=== PATIENT | male | born 1965 | race African-American/Black ===

== ENCOUNTER 2017-02-14 10:30 | Inpatient (IN) | payer OTHER ==
[2017-02-14 12:27] VITALS: BMI 25.4
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
[2017-02-14] MEDS ORDERED: P-EPHED 60MG/TRIPROLIDI 2.5MG TABLET PO PRN (13:50)
[2017-02-14] MEDS ORDERED: ACETAMINOPHEN 325 MG TABLET (FP) PO PRN (13:50)
[2017-02-14] MEDS ORDERED: MAGNESIUM HYDROX 2400MG/30ML ORAL SUSPENSION 30 ML CUP PO PRN (13:50)
[2017-02-14] MEDS ORDERED: MAG HYDROX/AL HYDROX/SIMETH 30 ML UNIT-DOSE CUP PO PRN (13:50)
[2017-02-14] MEDS ORDERED: LOPERAMIDE HCL 2 MG CAPSULE PO PRN (13:50)
[2017-02-14] MEDS ORDERED: IBUPROFEN 400 MG TABLET (FP) PO PRN (13:50)
[2017-02-14] MEDS ORDERED: MAGNESIUM CITRATE 300 ML BOTTLE PO PRN (13:50)
[2017-02-14] MEDS ORDERED: MENTHOL/PHENOL 1 EACH UD MM PRN (13:50)
[2017-02-14] MEDS ORDERED: guaiFENesin/D-METHORPHAN HB 10 ML UNIT-DOSE CUPS PO PRN (13:50)
[2017-02-14] MEDS: THIAMINE HCL 100 MG TABLET (FP) PO SCH (21:49)
[2017-02-14 23:17] LABS: URINE APPEARANCE CLEAR; URINE BILIRUBIN NEGATIVE (NEGATIVE); URINE BLOOD NEGATIVE (NEGATIVE); URINE COLOR YELLOW; URINE GLUCOSE (UA) NEGATIVE (NEGATIVE); URINE KETONE TRACE (NEGATIVE); URINE LEUK ESTERASE NEGATIVE (NEGATIVE); URINE NITRITE NEGATIVE (NEGATIVE); URINE PROTEIN NEGATIVE (NEGATIVE)
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
[2017-02-15] MEDS: hydrOXYzine PAMOATE 50 MG CAPSULE (FP) PO PRN (08:57)
[2017-02-15] MEDS: PRENATAL VITAMINS W/ FOLIC ACID TABLET (FP) PO SCH (09:02)
[2017-02-15 10:25] LABS: MCH 31.7 pg (25.7-33.7); MCHC 32.6 g/dl (32.0-35.9); MEAN CELL VOLUME 97.3 fl (80-96); MEAN PLT VOLUME 8.4 fl (7.5-11.1); PLATELET COUNT 187 K/MM3 (134-434); RDW 13.9 % (11.9-15.9); WHITE BLOOD COUNT 4.6 K/mm3 (4.0-10.0)
[2017-02-15 10:53] LABS: ALBUMIN 3.5 g/dl (3.4-5.0); ALK PHOS 61 U/L (45-117); ANION GAP 7 (8-16); BILIRUBIN,TOTAL 0.7 mg/dL (0.2-1.0); CALCIUM 9.5 mg/dL (8.5-10.1); CO2 29 mmol/L (21-32); CREATININE 1.2 mg/dL (0.7-1.3); GLUCOSE,RANDOM 87 mg/dL (74-106); SGOT/AST 19 U/L (15-37); SGPT/ALT 22 U/L (12-78); TOT PROT 7.3 g/dl (6.4-8.2)
[2017-02-15] MEDS: THIAMINE HCL 100 MG TABLET (FP) PO SCH (21:25)
[2017-02-16] MEDS: IBUPROFEN 600 MG TABLET (FP) PO PRN (09:50)
[2017-02-16] MEDS: hydrOXYzine PAMOATE 50 MG CAPSULE (FP) PO PRN (09:51)
[2017-02-16] MEDS: PRENATAL VITAMINS W/ FOLIC ACID TABLET (FP) PO SCH (09:51)
--- NOTE | 2017-02-16 12:23 | EKG ---
Test Reason : Blood Pressure : / mmHG Vent. Rate : 061 BPM Atrial Rate : 061 BPM P-R Int : 150 ms QRS Dur : 102 ms QT Int : 408 ms P-R-T Axes : 069 -30 046 degrees QTc Int : 410 ms NORMAL SINUS RHYTHM LEFT AXIS DEVIATION PULMONARY DISEASE PATTERN INCOMPLETE RIGHT BUNDLE BRANCH BLOCK ABNORMAL ECG NO PREVIOUS ECGS AVAILABLE Confirmed by COLE CARO MD ([id number]) on 02/16/2017 12:23:47 PM Referred By: Confirmed By:COLE CARO MD
[2017-02-16] MEDS: THIAMINE HCL 100 MG TABLET (FP) PO SCH (21:45)
[2017-02-17] MEDS: IBUPROFEN 600 MG TABLET (FP) PO PRN (10:00)
[2017-02-17] MEDS: hydrOXYzine PAMOATE 50 MG CAPSULE (FP) PO PRN (10:00)
[2017-02-17] MEDS: PRENATAL VITAMINS W/ FOLIC ACID TABLET (FP) PO SCH (10:00)
[2017-02-17] MEDS: THIAMINE HCL 100 MG TABLET (FP) PO SCH (22:05)
[2017-02-18] MEDS: PRENATAL VITAMINS W/ FOLIC ACID TABLET (FP) PO SCH (10:07)
[2017-02-18] MEDS: THIAMINE HCL 100 MG TABLET (FP) PO SCH (21:24)
[2017-02-19] MEDS: PRENATAL VITAMINS W/ FOLIC ACID TABLET (FP) PO SCH (09:58)
[2017-02-19] MEDS: THIAMINE HCL 100 MG TABLET (FP) PO SCH (21:35)
[2017-02-20] MEDS: PRENATAL VITAMINS W/ FOLIC ACID TABLET (FP) PO SCH (10:04)
[2017-02-20] MEDS: IBUPROFEN 600 MG TABLET (FP) PO PRN (10:05)
[2017-02-20] MEDS: THIAMINE HCL 100 MG TABLET (FP) PO SCH (21:35)
[2017-02-20] MEDS: diphenhydrAMINE HCL 50 MG CAPSULE PO PRN (21:35)
[2017-02-21] MEDS: PRENATAL VITAMINS W/ FOLIC ACID TABLET (FP) PO SCH (10:04)
[2017-02-21] MEDS: THIAMINE HCL 100 MG TABLET (FP) PO SCH (21:31)
[2017-02-22] MEDS: PRENATAL VITAMINS W/ FOLIC ACID TABLET (FP) PO SCH (10:46)
[2017-02-22] MEDS: THIAMINE HCL 100 MG TABLET (FP) PO SCH (21:42)
[2017-02-23] MEDS: PRENATAL VITAMINS W/ FOLIC ACID TABLET (FP) PO SCH (10:03)
[2017-02-23] MEDS: THIAMINE HCL 100 MG TABLET (FP) PO SCH (21:36)
[2017-02-24] MEDS: PRENATAL VITAMINS W/ FOLIC ACID TABLET (FP) PO SCH (10:13)
[2017-02-24] MEDS: THIAMINE HCL 100 MG TABLET (FP) PO SCH (21:34)
[2017-02-25] MEDS: PRENATAL VITAMINS W/ FOLIC ACID TABLET (FP) PO SCH (09:52)
[2017-02-25] MEDS: THIAMINE HCL 100 MG TABLET (FP) PO SCH (21:37)
[2017-02-26] MEDS: PRENATAL VITAMINS W/ FOLIC ACID TABLET (FP) PO SCH (10:11)
[2017-02-26] MEDS: diphenhydrAMINE HCL 50 MG CAPSULE PO PRN (22:05)
[2017-02-26] MEDS: THIAMINE HCL 100 MG TABLET (FP) PO SCH (22:06)
[2017-02-27] MEDS: PRENATAL VITAMINS W/ FOLIC ACID TABLET (FP) PO SCH (10:29)
[2017-02-27] MEDS: diphenhydrAMINE HCL 50 MG CAPSULE PO PRN (21:26)
[2017-02-27] MEDS: THIAMINE HCL 100 MG TABLET (FP) PO SCH (21:27)
[2017-02-28] MEDS: PRENATAL VITAMINS W/ FOLIC ACID TABLET (FP) PO SCH (10:22)
[2017-02-28] MEDS: THIAMINE HCL 100 MG TABLET (FP) PO SCH (21:27)
[2017-02-28] MEDS: diphenhydrAMINE HCL 50 MG CAPSULE PO PRN (21:27)
[2017-03-01] MEDS: PRENATAL VITAMINS W/ FOLIC ACID TABLET (FP) PO SCH (10:20)
[2017-03-01] MEDS: THIAMINE HCL 100 MG TABLET (FP) PO SCH (21:29)
[2017-03-01] MEDS: diphenhydrAMINE HCL 50 MG CAPSULE PO PRN (21:29)
[2017-03-01] MEDS: IBUPROFEN 600 MG TABLET (FP) PO PRN (21:30)
[2017-03-02] MEDS: PRENATAL VITAMINS W/ FOLIC ACID TABLET (FP) PO SCH (10:27)
[2017-03-02] MEDS: IBUPROFEN 600 MG TABLET (FP) PO PRN (21:34)
[2017-03-02] MEDS: diphenhydrAMINE HCL 50 MG CAPSULE PO PRN (21:34)
[2017-03-02] MEDS: THIAMINE HCL 100 MG TABLET (FP) PO SCH (21:35)
[2017-03-03] MEDS: PRENATAL VITAMINS W/ FOLIC ACID TABLET (FP) PO SCH (10:09)
[2017-03-03] MEDS: diphenhydrAMINE HCL 50 MG CAPSULE PO PRN (21:31)
[2017-03-03] MEDS: THIAMINE HCL 100 MG TABLET (FP) PO SCH (21:32)
[2017-03-04] MEDS: PRENATAL VITAMINS W/ FOLIC ACID TABLET (FP) PO SCH (09:57)
[2017-03-04] MEDS: diphenhydrAMINE HCL 50 MG CAPSULE PO PRN (21:29)
[2017-03-04] MEDS: THIAMINE HCL 100 MG TABLET (FP) PO SCH (21:29)
[2017-03-05] MEDS: PRENATAL VITAMINS W/ FOLIC ACID TABLET (FP) PO SCH (10:01)
[2017-03-05] MEDS: diphenhydrAMINE HCL 50 MG CAPSULE PO PRN (21:31)
[2017-03-05] MEDS: THIAMINE HCL 100 MG TABLET (FP) PO SCH (21:31)
[2017-03-06 06:53] VITALS: TEMP 98.2
[2017-03-06] MEDS: PRENATAL VITAMINS W/ FOLIC ACID TABLET (FP) PO SCH (10:10)
[2017-03-06] MEDS: THIAMINE HCL 100 MG TABLET (FP) PO SCH (21:29)
[2017-03-06] MEDS: diphenhydrAMINE HCL 50 MG CAPSULE PO PRN (21:29)
[2017-03-07 07:08] VITALS: BP 132/91; PULSE 90
--- NOTE | 2017-03-07 09:04 | PN ---
Psychiatric Progress Note Vital Signs: Vital Signs Period Temp Pulse Resp BP Sys/Stern Pulse Ox Last 24 Hr 98.2 F 90 18-18 132/91 Date of Session: 03/07/17 Chief Complaint:: Discharge visit HPI: Patient addressed alcohol and pcp dependence comorbid with substance induced mood disorder. ROS: unremarkable Current Medications: Active Medications Generic Name Dose Route Start Last Admin Trade Name Freq PRN Reason Stop Dose Admin Acetaminophen 650 mg 02/14/17 13:50 Tylenol - PO Q4H PRN FEVER OR PAIN Al Hydroxide/Mg Hydroxide 30 ml 02/14/17 13:50 03/05/17 23:11 Mylanta Oral Suspension - PO 30 ml Q6H PRN Administration DYSPEPSIA Diphenhydramine HCl 50 mg 02/14/17 13:50 03/06/17 21:29 Benadryl - PO 50 mg HSMR1 PRN Administration FOR ITCHING Eucalyptus/Menthol/Phenol/Sorbitol 1 each 02/14/17 13:50 Cepastat Lozenge - MM Q4H PRN SORE THROAT Guaifenesin 10 ml 02/14/17 13:50 Robitussin Dm - PO Q6H PRN COUGH Hydroxyzine Pamoate 50 mg 02/14/17 13:50 02/17/17 10:00 Vistaril - PO 50 mg Q4H PRN Administration AGITATION Ibuprofen 600 mg 02/15/17 11:11 03/02/17 21:34 Motrin - PO 600 mg Q6H PRN Administration PAIN Loperamide HCl 4 mg 02/14/17 13:50 Imodium - PO Q6H PRN DIARRHEA Magnesium Hydroxide 30 ml 02/14/17 13:50 Milk Of Magnesia - PO DAILY PRN CONSTIPATION Multivit/Folic Acid/Iron 1 tab 02/15/17 10:00 03/06/17 10:10 Vitamins (Sjr) - PO 1 tab DAILY MARTHA Administration Pseudoephedrine/Triprolidine 1 combo 02/14/17 13:50 Actifed - PO TID PRN NASAL CONGESTION Thiamine HCl 100 mg 02/14/17 22:00 03/06/17 21:29 Vitamin B1 - PO Not Given HS MARTHA Current Side Effect: No Lab tests ordered: No Lab tests reviewed: Yes Provider note:: Patient completed this program today.he has met his treatment goals and will continue to address his issues on outpatient basis at [facility] rehabilitation program.Patient continues to find that Vistaril as needed will help him to cope with anxiety,some irritability and episodes of mood instability.No need to start antidepressants at this time. Suportive therapy priovided focusing on relapse prevention,coping skills,support system utilization to maintain recovery. Patient is stable for discharge today. Total face to face time:: 30 Mental Status Exam - Mental Status Exam Alert and Oriented to: Time, Place, Person Cognitive Function: Grossly Intact Patient Appearance: Well Groomed Mood: Euthymic Affect: Appropriate Patient Behavior: Appropriate, Cooperative Speech Pattern: Clear Voice Loudness: Normal Thought Process: Goal Oriented Thought Disorder: Not Present Hallucinations: Denies Suicidal Ideation: Denies Homicidal Ideation: Denies Insight/Judgement: Fair Sleep: Fair Appetite: Good Muscle strength/Tone: Normal Gait/Station: Normal
[2017-03-07] MEDS: PRENATAL VITAMINS W/ FOLIC ACID TABLET (FP) PO SCH (10:02)
== END 2017-03-07 10:30 | disposition home or self-care (01) | DRG 772 ==
LOC: YASAS 10:30 → Y5N 13:41
PROVIDERS: ADMIT Psychiatry & Neurology Psychiatry; ATTEND Psychiatry & Neurology Psychiatry
PROC: HZ42ZZZ Group Counseling for Substance Abuse Treatment, Cognitive-Behavioral (ICD-10-PCS; principal; 2017-02-14)
DX: F10.20 Alcohol dependence, uncomplicated (principal); F16.20 Hallucinogen dependence, uncomplicated; F19.24 Other psychoactive substance dependence with psychoactive substance-induced mood disorder; R76.11 Nonspecific reaction to tuberculin skin test without active tuberculosis; R26.2 Difficulty in walking, not elsewhere classified; Z99.89 Dependence on other enabling machines and devices; Z87.828 Personal history of other (healed) physical injury and trauma; S93.402D Sprain of unspecified ligament of left ankle, subsequent encounter; X58.XXXD Exposure to other specified factors, subsequent encounter
CPT/HCPCS: 36415; 71010-TC; 80053; 81003; 85027; 86593; 93005; 93010

== ENCOUNTER 2017-11-28 18:06 | Inpatient (IN) | payer OTHER ==
[2017-11-28 19:56] VITALS: BMI 22.0
[2017-11-28] MEDS ORDERED: MELATONIN 5 MG TABLETS PO PRN (22:00)
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
[2017-11-28] MEDS ORDERED: MAGNESIUM HYDROX 2400MG/30ML ORAL SUSPENSION 30 ML CUP PO PRN (22:19)
[2017-11-28] MEDS ORDERED: IBUPROFEN 400 MG TABLET (FP) PO PRN (22:19)
[2017-11-28] MEDS ORDERED: P-EPHED 60MG/TRIPROLIDI 2.5MG TABLET PO PRN (22:19)
[2017-11-28] MEDS ORDERED: ACETAMINOPHEN 325 MG TABLET (FP) PO PRN (22:19)
[2017-11-28] MEDS ORDERED: LOPERAMIDE HCL 2 MG CAPSULE PO PRN (22:19)
[2017-11-28] MEDS ORDERED: MENTHOL/PHENOL 1 EACH UD MM PRN (22:19)
[2017-11-28] MEDS ORDERED: chlordiazePOXIDE HCL 25 MG CAPSULE PO PRN (22:19)
[2017-11-28] MEDS ORDERED: MAG HYDROX/AL HYDROX/SIMETH 30 ML UNIT-DOSE CUP PO PRN (22:19)
[2017-11-28] MEDS ORDERED: guaiFENesin/D-METHORPHAN HB 10 ML UNIT-DOSE CUPS PO PRN (22:19)
[2017-11-28] MEDS ORDERED: MAGNESIUM CITRATE 300 ML BOTTLE PO PRN (22:19)
[2017-11-28] MEDS: chlordiazePOXIDE HCL 25 MG CAPSULE PO SCH (23:36)
[2017-11-29] MEDS: chlordiazePOXIDE HCL 25 MG CAPSULE PO SCH ×4 (05:43→22:18)
[2017-11-29 09:47] LABS: HEMATOCRIT 42.3 % (35.4-49); MCH 31.9 pg (25.7-33.7); MCHC 33.2 g/dl (32.0-35.9); MEAN PLT VOLUME 8.2 fl (7.5-11.1); PLATELET COUNT 166 K/MM3 (134-434); RDW 13.8 % (11.9-15.9); WHITE BLOOD COUNT 3.9 K/mm3 (4.0-10.0)
--- NOTE | 2017-11-29 09:50 | EKG ---
Test Reason : Blood Pressure : / mmHG Vent. Rate : 064 BPM Atrial Rate : 064 BPM P-R Int : 152 ms QRS Dur : 092 ms QT Int : 412 ms P-R-T Axes : 065 001 049 degrees QTc Int : 425 ms NORMAL SINUS RHYTHM NORMAL ECG WHEN COMPARED WITH ECG OF 14-FEB-2017 15:34, NON-SPECIFIC CHANGE IN ST SEGMENT IN ANTERIOR LEADS Confirmed by MD Chelsea, Leon ([id number]) on 11/29/2017 9:50:07 AM Referred By: Otf Fontaine Confirmed By:Leon Tran MD
[2017-11-29 10:07] LABS: CHLORIDE 109 mmol/L (98-107); POTASSIUM 3.7 mmol/L (3.5-5.1); SODIUM 144 mmol/L (136-145)
--- NOTE | 2017-11-29 10:16 | PN ---
S CIWA - CIWA Score Nausea/Vomitin Muscle Tremors: 3 Anxiety: 3 Agitation: 2 Paroxysmal Sweats: No Perspiration Orientation: 0-Oriented Tacttile Disturbances: 1-Very Mild Itch/Numbness Auditory Disturbances: 1-Very Mild Visual Disturbances: 0-None Headache: 2-Mild CIWA-Ar Total Score: 15 S Progress Note (SOAP) Subjective: ALERT,IRRITABLE,ANXIOUS,INTERRUPTED SLEEP,TREMOR Objective: 11/29/17 10:14 Vital Signs Temperature 97.3 F L 11/29/17 08:54 Pulse Rate 74 11/29/17 08:54 Respiratory Rate 18 11/29/17 08:54 Blood Pressure 112/79 11/29/17 08:54 O2 Sat by Pulse Oximetry (%) EKG NSR,NORMAL ECG PROLONG QT 412/425 NO CHEST PAIN,NO SOB,NO DIZZINESS Laboratory Last Values WBC 3.9 K/mm3 (4.0-10.0) L 11/29/17 07:30 RBC 4.40 M/mm3 (4.00-5.60) 11/29/17 07:30 Hgb 14.0 GM/dL (11.7-16.9) D 11/29/17 07:30 Hct 42.3 % (35.4-49) 11/29/17 07:30 MCV 96.0 fl (80-96) 11/29/17 07:30 MCH 31.9 pg (25.7-33.7) 11/29/17 07:30 MCHC 33.2 g/dl (32.0-35.9) 11/29/17 07:30 RDW 13.8 % (11.9-15.9) 11/29/17 07:30 Plt Count 166 K/MM3 (134-434) 11/29/17 07:30 MPV 8.2 fl (7.5-11.1) 11/29/17 07:30 Sodium 144 mmol/L (136-145) 11/29/17 07:30 Potassium 3.7 mmol/L (3.5-5.1) 11/29/17 07:30 Chloride 109 mmol/L (98-107) H 11/29/17 07:30 LABS PENDING Assessment: 11/29/17 10:15 WITHDRAWAL SYMPTOM Plan: CONTINUE DETOX
[2017-11-29] MEDS: PRENATAL VITAMINS W/ FOLIC ACID TABLET (FP) PO SCH (10:36)
[2017-11-29] MEDS: TOLNAFTATE 1% CREAM 15 GM TUBE TP SCH ×2 (11:00→22:19)
[2017-11-29] MEDS: AMMONIUM LACTATE 12% LOTION 225 GM BOTTLE TP SCH ×2 (11:00→22:19)
[2017-11-29 11:10] LABS: ALK PHOS 47 U/L (45-117); ANION GAP 4 (8-16); BILIRUBIN,TOTAL 0.7 mg/dL (0.2-1.0); BLOOD UREA NITROGEN 15 mg/dL (7-18); CALCIUM 8.2 mg/dL (8.5-10.1); CO2 31 mmol/L (21-32); GLUCOSE,RANDOM 77 mg/dL (74-106); SGOT/AST 15 U/L (15-37); SGPT/ALT 14 U/L (12-78); TOT PROT 5.9 g/dl (6.4-8.2)
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
[2017-11-29] MEDS: THIAMINE HCL 100 MG TABLET (FP) PO SCH (22:18)
[2017-11-30] MEDS: chlordiazePOXIDE HCL 25 MG CAPSULE PO SCH ×3 (05:16→17:55)
--- NOTE | 2017-11-30 09:07 | PN ---
S CIWA - CIWA Score Nausea/Vomitin Muscle Tremors: 3 Anxiety: 2 Agitation: 2 Paroxysmal Sweats: 1-Minimal Palms Moist Orientation: 0-Oriented Tacttile Disturbances: 1-Very Mild Itch/Numbness Auditory Disturbances: 1-Very Mild Visual Disturbances: 0-None Headache: 2-Mild CIWA-Ar Total Score: 15 [facility] Progress Note (SOAP) Subjective: ALERT,IRRITABLE,ANXIOUS,INTERRUPTED SLEEP,PAIN IN THE BODY Objective: 11/30/17 09:05 Vital Signs Temperature 97 F L 11/30/17 07:17 Pulse Rate 65 11/30/17 07:17 Respiratory Rate 18 11/30/17 07:17 Blood Pressure 128/78 11/30/17 07:17 O2 Sat by Pulse Oximetry (%) Laboratory Last Values WBC 3.9 K/mm3 (4.0-10.0) L 11/29/17 07:30 RBC 4.40 M/mm3 (4.00-5.60) 11/29/17 07:30 Hgb 14.0 GM/dL (11.7-16.9) D 11/29/17 07:30 Hct 42.3 % (35.4-49) 11/29/17 07:30 MCV 96.0 fl (80-96) 11/29/17 07:30 MCH 31.9 pg (25.7-33.7) 11/29/17 07:30 MCHC 33.2 g/dl (32.0-35.9) 11/29/17 07:30 RDW 13.8 % (11.9-15.9) 11/29/17 07:30 Plt Count 166 K/MM3 (134-434) 11/29/17 07:30 MPV 8.2 fl (7.5-11.1) 11/29/17 07:30 Sodium 144 mmol/L (136-145) 11/29/17 07:30 Potassium 3.7 mmol/L (3.5-5.1) 11/29/17 07:30 Chloride 109 mmol/L (98-107) H 11/29/17 07:30 Carbon Dioxide 31 mmol/L (21-32) 11/29/17 07:30 Anion Gap 4 (8-16) L 11/29/17 07:30 BUN 15 mg/dL (7-18) D 11/29/17 07:30 Creatinine 1.0 mg/dL (0.7-1.3) 11/29/17 07:30 Creat Clearance w eGFR > 60 (>60) 11/29/17 07:30 Random Glucose 77 mg/dL (74-106) 11/29/17 07:30 Calcium 8.2 mg/dL (8.5-10.1) L 11/29/17 07:30 Total Bilirubin 0.7 mg/dL (0.2-1.0) 11/29/17 07:30 AST 15 U/L (15-37) D 11/29/17 07:30 ALT 14 U/L (12-78) D 11/29/17 07:30 Alkaline Phosphatase 47 U/L (45-117) D 11/29/17 07:30 Total Protein 5.9 g/dl (6.4-8.2) L 11/29/17 07:30 Albumin 3.0 g/dl (3.4-5.0) L 11/29/17 07:30 RPR Titer Nonreactive (NONREACTIVE) 11/29/17 07:30 Assessment: 11/30/17 09:06 WITHDRAWAL SYMPTOM Plan: CONTINUE DETOX
[2017-11-30] MEDS: AMMONIUM LACTATE 12% LOTION 225 GM BOTTLE TP SCH ×2 (10:23→22:17)
[2017-11-30] MEDS: TOLNAFTATE 1% CREAM 15 GM TUBE TP SCH ×2 (10:23→22:19)
[2017-11-30] MEDS: PRENATAL VITAMINS W/ FOLIC ACID TABLET (FP) PO SCH (10:23)
[2017-11-30] MEDS: chlordiazePOXIDE 5 MG CAPSULE PO SCH (22:16)
[2017-11-30] MEDS: THIAMINE HCL 100 MG TABLET (FP) PO SCH (22:16)
[2017-12-01] MEDS: chlordiazePOXIDE 5 MG CAPSULE PO SCH ×3 (05:09→17:55)
--- NOTE | 2017-12-01 09:56 | PN ---
[facility] Progress Note (SOAP) Subjective: ALERT,IRRITABLE,INTERRUPTED SLEEP,PAIN IN THE BODY Objective: 12/01/17 09:55 Vital Signs Temperature 97.5 F L 12/01/17 09:17 Pulse Rate 75 12/01/17 09:17 Respiratory Rate 18 12/01/17 09:17 Blood Pressure 130/91 12/01/17 09:17 O2 Sat by Pulse Oximetry (%) Assessment: 12/01/17 09:55 WITHDRAWAL SYMPTOM Plan: CONTINUE DETOX
[2017-12-01] MEDS: TOLNAFTATE 1% CREAM 15 GM TUBE TP SCH ×2 (10:25→22:22)
[2017-12-01] MEDS: PRENATAL VITAMINS W/ FOLIC ACID TABLET (FP) PO SCH (10:25)
[2017-12-01] MEDS: AMMONIUM LACTATE 12% LOTION 225 GM BOTTLE TP SCH ×2 (10:26→22:20)
[2017-12-01 14:50] LABS: URINE APPEARANCE CLEAR; URINE BILIRUBIN NEGATIVE (<2.0 mg/dL); URINE COLOR STRAW; URINE GLUCOSE (UA) NEGATIVE (NEGATIVE); URINE KETONE NEGATIVE (NEGATIVE); URINE LEUK ESTERASE NEGATIVE (NEGATIVE); URINE NITRITE NEGATIVE (NEGATIVE); URINE PROTEIN NEGATIVE (NEGATIVE); URINE UROBILINOGEN NEGATIVE mg/dL (0.2-1.0)
[2017-12-01] MEDS: chlordiazePOXIDE HCL 10 MG CAPSULE PO SCH (22:22)
[2017-12-01] MEDS: THIAMINE HCL 100 MG TABLET (FP) PO SCH (22:22)
[2017-12-02] MEDS: chlordiazePOXIDE HCL 10 MG CAPSULE PO SCH (05:07)
--- NOTE | 2017-12-02 08:16 | PN ---
S Progress Note (SOAP) Subjective: ALERT,NO COMPLAINT Objective: 12/02/17 08:14 Vital Signs Temperature 97.3 F L 12/02/17 06:11 Pulse Rate 72 12/02/17 06:11 Respiratory Rate 18 12/02/17 06:11 Blood Pressure 131/69 12/02/17 06:11 O2 Sat by Pulse Oximetry (%) Assessment: 12/02/17 08:14 DETOX COMPLETED,NO WITHDRAWAL SYMPTOM Plan: DISCHARGE TODAY,FOLLOW UP WITH AFTER CARE PROGRAM ARRANGEMENT
--- NOTE | 2017-12-02 08:24 | DS ---
[facility] Detox Discharge Summary Admission Date: 11/28/17 - History Present History: Alcohol Dependence, Pcp Dependence Additional Comments: FOLLOW UP WITH AFTER CARE PROGRAM ARRANGEMENT - Physical Exam Results Vital Signs: Vital Signs Temperature 97.3 F L 12/02/17 06:11 Pulse Rate 72 12/02/17 06:11 Respiratory Rate 18 12/02/17 06:11 Blood Pressure 131/69 12/02/17 06:11 O2 Sat by Pulse Oximetry (%) Pertinent Admission Physical Exam Findings: WITHDRAWAL SIGNS AND SYMPTOM Vital Signs Temperature 97.3 F L 12/02/17 06:11 Pulse Rate 72 12/02/17 06:11 Respiratory Rate 18 12/02/17 06:11 Blood Pressure 131/69 12/02/17 06:11 O2 Sat by Pulse Oximetry (%) Laboratory Last Values WBC 3.9 K/mm3 (4.0-10.0) L 11/29/17 07:30 RBC 4.40 M/mm3 (4.00-5.60) 11/29/17 07:30 Hgb 14.0 GM/dL (11.7-16.9) D 11/29/17 07:30 Hct 42.3 % (35.4-49) 11/29/17 07:30 MCV 96.0 fl (80-96) 11/29/17 07:30 MCH 31.9 pg (25.7-33.7) 11/29/17 07:30 MCHC 33.2 g/dl (32.0-35.9) 11/29/17 07:30 RDW 13.8 % (11.9-15.9) 11/29/17 07:30 Plt Count 166 K/MM3 (134-434) 11/29/17 07:30 MPV 8.2 fl (7.5-11.1) 11/29/17 07:30 Sodium 144 mmol/L (136-145) 11/29/17 07:30 Potassium 3.7 mmol/L (3.5-5.1) 11/29/17 07:30 Chloride 109 mmol/L (98-107) H 11/29/17 07:30 Carbon Dioxide 31 mmol/L (21-32) 11/29/17 07:30 Anion Gap 4 (8-16) L 11/29/17 07:30 BUN 15 mg/dL (7-18) D 11/29/17 07:30 Creatinine 1.0 mg/dL (0.7-1.3) 11/29/17 07:30 Creat Clearance w eGFR > 60 (>60) 11/29/17 07:30 Random Glucose 77 mg/dL (74-106) 11/29/17 07:30 Calcium 8.2 mg/dL (8.5-10.1) L 11/29/17 07:30 Total Bilirubin 0.7 mg/dL (0.2-1.0) 11/29/17 07:30 AST 15 U/L (15-37) D 11/29/17 07:30 ALT 14 U/L (12-78) D 11/29/17 07:30 Alkaline Phosphatase 47 U/L (45-117) D 11/29/17 07:30 Total Protein 5.9 g/dl (6.4-8.2) L 11/29/17 07:30 Albumin 3.0 g/dl (3.4-5.0) L 11/29/17 07:30 Urine Color Straw 12/01/17 11:00 Urine Appearance Clear 12/01/17 11:00 Urine pH 6.0 (5.0-8.0) 12/01/17 11:00 Ur Specific Micro 1.012 (1.001-1.035) 12/01/17 11:00 Urine Protein Negative (NEGATIVE) 12/01/17 11:00 Urine Glucose (UA) Negative (NEGATIVE) 12/01/17 11:00 Urine Ketones Negative (NEGATIVE) 12/01/17 11:00 Urine Blood Negative (NEGATIVE) 12/01/17 11:00 Urine Nitrite Negative (NEGATIVE) 12/01/17 11:00 Urine Bilirubin Negative (<2.0 mg/dL) 12/01/17 11:00 Urine Urobilinogen Negative mg/dL (0.2-1.0) 12/01/17 11:00 Ur Leukocyte Esterase Negative (NEGATIVE) 12/01/17 11:00 RPR Titer Nonreactive (NONREACTIVE) 11/29/17 07:30 - Treatment Hospital Course: Detox Protocol Followed, Detoxed Safely, Responded well, Discharged Condition Good, Rehab Referral Accepted Patient has Accepted a Rehab Referral to: [facility] - Medication Discharge Medications: Ambulatory Orders NK [No Known Home Medication] 02/14/17 Acetaminophen [Tylenol] 650 mg PO QID PRN 05/26/17 - Diagnosis (1) Alcohol dependence with uncomplicated withdrawal Current Visit: Yes Status: Acute (2) Tinea pedis Current Visit: Yes Status: Acute (3) PCP dependence Current Visit: Yes Status: Chronic (4) Positive PPD Current Visit: Yes Status: Chronic - AMA Did Patient Leave Against Medical Advice: No
[2017-12-02 09:12] VITALS: BP 134/73; PULSE 82; TEMP 98.1
== END 2017-12-02 10:15 | disposition home or self-care (01) | DRG 775 ==
LOC: YASAS 18:06 → Y6N 21:03
PROVIDERS: ADMIT Surgery; ATTEND Surgery
PROC: HZ2ZZZZ Detoxification Services for Substance Abuse Treatment (ICD-10-PCS; principal; 2017-11-28)
DX: F10.230 Alcohol dependence with withdrawal, uncomplicated (principal); F16.20 Hallucinogen dependence, uncomplicated; F32.9 Major depressive disorder, single episode, unspecified; F41.9 Anxiety disorder, unspecified; B35.3 Tinea pedis; R76.11 Nonspecific reaction to tuberculin skin test without active tuberculosis
CPT/HCPCS: 36415; 71046-TC-FY; 80053; 81003; 85027; 86593; 93005; 93010